=== PATIENT | male | born 1995 | race Two or more races ===

== ENCOUNTER 2020-10-11 10:14 | Emergency (ER) | payer SELFPAY ==
--- NOTE | 2020-10-11 10:31 | EDM.PDOC ---
ED HPI GENERAL MEDICAL PROBLEM - General Stated Complaint: HURT TO URINATE Time Seen by Provider: 10/11/20 10:18 Source of Information: Reports: Patient History Limitations: Reports: No Limitations - History of Present Illness INITIAL COMMENTS - FREE TEXT/NARRATIVE: 24-year-old male no past medical history presents for dysuria and penile discharge. Patient notes that he sexually active with last partner roughly 2 weeks ago. He is noted symptoms for the last 2 days. He denies noting any lesions or sores on his penis or groin area. No testicular pain. No abdominal pain. No nausea or vomiting. No fevers. The penile discharge is described as yellow and thick. 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 pain with urination Pain Score (Numeric/FACES): 2 - Related Data Allergies Allergy/AdvReac Type Severity Reaction Status Date / Time No Known Allergies Allergy Verified 10/11/20 10:59 Home Meds: Home Meds Sulfamethoxazole/Trimethoprim [Bactrim Ds Tablet] 1 each PO BID #14 tablet 10/11/20 [Rx] ED ROS GENERAL - Review of Systems Review Of Systems: Comprehensive ROS is negative, except as noted in HPI. ED EXAM, GENERAL - Physical Exam Exam: See Below Exam Limited By: No Limitations General Appearance: Alert, WD/WN, No Apparent Distress Throat/Mouth: Normal Voice, No Airway Compromise Head: Atraumatic, Normocephalic Respiratory/Chest: No Respiratory Distress, No Accessory Muscle Use Cardiovascular: Normal Peripheral Pulses, Regular Rate, Rhythm GI/Abdominal: Soft, Non-Tender (Male) Exam: Normal Inspection. No: Rash, Scrotal Swelling, Scrotum Tenderness (L), Scrotum Tenderness (R), Suprapubic Fullness, Testicular Mass, Testicular Tenderness (L), Testicular Tenderness (R), Urethral Discharge Extremities: Normal Inspection Psychiatric: Normal Affect, Normal Mood Skin Exam: Warm, Dry, Intact, Normal Color Course - Vital Signs Last Recorded V/S: Last Vital Signs Temp 98.4 F 10/11/20 10:54 Pulse 88 10/11/20 10:54 Resp 18 10/11/20 10:54 BP 122/70 10/11/20 10:54 Pulse Ox 97 10/11/20 10:54 - Orders/Labs/Meds Orders: Active Orders 24 hr Category Date Time Status CHLAMYDIA AND GONORRHEA BY TMA Stat Lab 10/11/20 11:05 Received Labs: Laboratory Tests 10/11/20 Range/Units 11:05 Urine Color YELLOW Urine Appearance CLOUDY Urine pH 6.5 (5.0-8.0) Ur Specific [place] 1.025 (1.001-1.035) Urine Protein NEGATIVE (NEGATIVE) mg/dL Urine Glucose (UA) NEGATIVE (NEGATIVE) mg/dL Urine Ketones NEGATIVE (NEGATIVE) mg/dL Urine Occult Blood MODERATE H (NEGATIVE) Urine Nitrite NEGATIVE (NEGATIVE) Urine Bilirubin NEGATIVE (NEGATIVE) Urine Urobilinogen 1.0 (<2.0) EU/dL Ur Leukocyte Esterase LARGE H (NEGATIVE) Urine RBC 8-12 (0-2/HPF) Urine WBC 50-60 (0-5/HPF) Ur Epithelial Cells RARE (NONE-FEW) Urine Bacteria RARE (NEGATIVE) Meds: Medications Discontinued Medications Generic Name Dose Route Start Last Admin Trade Name Freq PRN Reason Stop Dose Admin Azithromycin 1,000 mg 10/11/20 11:21 Azithromycin 250 Mg Tab PO 10/11/20 11:22 STAT STA Ceftriaxone Sodium 500 mg/ 1 mls @ 1 mls/sec 10/11/20 11:21 Lidocaine HCl IM 10/11/20 11:22 ONETIME ONE - Re-Assessments/Exams Free Text/Narrative Re-Assessment/Exam: 10/11/20 11:25 Will test and treat for gonorrhea and chlamydia. We will send urinalysis as well. 10/11/20 11:29 Urinalysis does show evidence of UTI. Will discharge with Bactrim in addition to the gonorrhea chlamydia treatment patient received in the emergency department. Departure - Departure Time of Disposition: 11:29 Disposition: Home, Self-Care 01 Condition: Good Clinical Impression: UTI (urinary tract infection) Qualifiers: Urinary tract infection type: site unspecified Hematuria presence: with hematuria Qualified Code(s): N39.0 - Urinary tract infection, site not specified - Discharge Information Prescriptions: Sulfamethoxazole/Trimethoprim [Bactrim Ds Tablet] 1 each PO BID #14 tablet Instructions: Urinary Tract Infection, Adult Referrals: PCP,None [Primary Care Provider] - Additional Instructions: Knox anlisis de orina muestra que tiene romain infeccin del tracto urinario. Tambin recibi tratamiento por infecciones de transmisin sexual, yajaira esta prueba no estar disponible hoy. Envi antibiticos a knox farmacia. Si tiene sntomas continuos a pesar del uso de antibiticos y regrese al departamento de emergencias o delmy un seguimiento con un mdico de atencin primaria. Las instrucciones de [place] se tradujeron con el traductor de [employer] y pueden contener errores. La siguiente informacin se arsalan a los pacientes atendidos en el departamento de emergencias que estn siendo dados de [place] a knox hogar. Esta informacin es para describir agustín opciones para la atencin de seguimiento. Proporcionamos a todos los pacientes atendidos en nuestro departamento de emergencias romain derivacin de seguimiento. La necesidad de seguimiento, as eliel el momento y las circunstancias, varan segn los detalles de knox visita al departamento de emergencias. Si no tiene un mdico de atencin primaria en el personal, le proporcionaremos romain referencia. Siempre le recomendamos que se ponga en contacto con knox mdico personal despus de romain visita al servicio de urgencias para informarle de las circunstancias de la visita y para hacer un seguimiento con l y / o la necesidad de cualquier derivacin a un especialista consultor. El departamento de emergencias tambin lo derivar a un especialista cuando sea apropiado. Esta remisin le asegura que tiene la oportunidad de recibir atencin de seguimiento con un especialista. Todas estas medidas se celso en un esfuerzo por brindarle romain atencin ptima, que incluye knox seguimiento. En todas las circunstancias, siempre lo alentamos a que se comunique con knox mdico privado, quien sigue siendo un recurso para coordinar knox atencin. Cuando llame para recibir atencin de seguimiento, informe al consultorio que samanta seguimiento es de knox visita reciente a la sean de emergencias. Si por alguna razn se le niega el seguimiento, comunquese con el Departamento de Emergencias del [facility] y solicite hablar con la enfermera a cargo del departamento de emergencias. Delmy un seguimiento con knox mdico de atencin primaria. Si no tiene un mdico de atencin primaria, consulte a continuacin: Atencin primaria de la wayne [facility] [address] [place] [id number] [facility] [address] [place] [id number] Sepsis Event Note (ED) - Focused Exam Vital Signs: Vital Signs Temp Pulse Resp BP Pulse Ox 10/11/20 10:54 98.4 F 88 18 122/70 97 - My Orders Last 24 Hours: My Active Orders 10/11/20 11:05 CHLAMYDIA AND GONORRHEA BY TMA Stat - Assessment/Plan Last 24 Hours: My Active Orders 10/11/20 11:05 CHLAMYDIA AND GONORRHEA BY TMA Stat
[2020-10-11] MEDS ORDERED: cefTRIAXone 500 MG in Lidocaine 1% 1 ML IM ONE (11:21)
[2020-10-11] MEDS ORDERED: Azithromycin 250 MG Tab PO STA (11:21)
[2020-10-13 12:06] LABS: C.TRACHOMATIS BY TMA Negative (Negative); N.GONORRHOEAE BY TMA Positive (Negative)
== END 2020-10-11 12:36 | disposition home or self-care (01) ==
LOC: MW.ED 10:14
DX: N39.0 Urinary tract infection, site not specified (principal); R31.9 Hematuria, unspecified
CPT/HCPCS: 81001; 87491; 87591; 96372; 99283; A9270; J0696

== ENCOUNTER 2020-10-11 20:10 | Emergency (ER) | payer SELFPAY ==
[2020-10-11] MEDS ORDERED: Ketorolac 30 MG/ML SDV IM STA (20:43)
--- NOTE | 2020-10-11 20:48 | EDM.PDOC ---
ED HPI GENERAL MEDICAL PROBLEM - General Chief Complaint: Genitourinary Problem Stated Complaint: PAIN Time Seen by Provider: 10/11/20 20:34 Source of Information: Reports: Patient History Limitations: Reports: No Limitations - History of Present Illness INITIAL COMMENTS - FREE TEXT/NARRATIVE: Patient is a 24-year-old male who was seen here earlier today, colleague was treated for STD and UTI. Patient returned back with his father because the pharmacy was closed and cannot warehouse picker his Bactrim prescription. Patient also complains of increased pain when urinating. Patient is requesting something for the pain as well. Patient otherwise denies any fever chills or other complaints. urinary pain Pain Score (Numeric/FACES): 10 - Related Data Allergies Allergy/AdvReac Type Severity Reaction Status Date / Time No Known Allergies Allergy Verified 10/11/20 20:38 Home Meds: Home Meds Sulfamethoxazole/Trimethoprim [Bactrim Ds Tablet] 1 each PO BID #14 tablet 10/11/20 [Rx] Past Medical History - Past Health History Medical/Surgical History: Denies Medical/Surgical History Social & Family History - Family History Family Medical History: Unobtainable ED ROS GENERAL - Review of Systems Review Of Systems: See Below Constitutional: Reports: No Symptoms HEENT: Reports: No Symptoms Respiratory: Reports: No Symptoms Cardiovascular: Reports: No Symptoms Endocrine: Reports: No Symptoms GI/Abdominal: Reports: No Symptoms : Reports: Dysuria Musculoskeletal: Reports: No Symptoms Skin: Reports: No Symptoms Neurological: Reports: No Symptoms Psychiatric: Reports: No Symptoms Hematologic/Lymphatic: Reports: No Symptoms Immunologic: Reports: No Symptoms ED EXAM, RENAL/ - Physical Exam Exam: See Below Exam Limited By: No Limitations General Appearance: Alert, WD/WN, No Apparent Distress (Male) Exam: Normal Inspection. No: Testicular Tenderness (L), Testicular Tenderness (R) Neurological: Alert, Oriented Course - Vital Signs Last Recorded V/S: Last Vital Signs Temp 98.2 F 10/11/20 20:35 Pulse 90 10/11/20 20:35 Resp 18 10/11/20 20:35 BP 122/89 10/11/20 20:35 Pulse Ox 97 10/11/20 20:35 - Orders/Labs/Meds Meds: Medications Discontinued Medications Generic Name Dose Route Start Last Admin Trade Name Freq PRN Reason Stop Dose Admin Ketorolac Tromethamine 30 mg 10/11/20 20:43 10/11/20 20:55 Ketorolac 30 Mg/Ml Sdv IM 10/11/20 20:44 30 mg NOW STA Administration Departure - Departure Time of Disposition: 21:07 Disposition: Home, Self-Care 01 Condition: Good Clinical Impression: STI (sexually transmitted infection) - Discharge Information *PRESCRIPTION DRUG MONITORING PROGRAM REVIEWED*: Not Applicable *COPY OF PRESCRIPTION DRUG MONITORING REPORT IN PATIENT GALILEO: Not Applicable Instructions: Sexually Transmitted Disease, [id number] Referrals: PCP,None [Primary Care Provider] - Forms: ED Department Discharge Additional Instructions: The following information is given to patients seen in the emergency department who are being discharged to home. This information is to outline your options for follow-up care. We provide all patients seen in our emergency department with a follow-up referral. The need for follow-up, as well as the timing and circumstances, are variable depending upon the specifics of your emergency department visit. If you don't have a primary care physician on staff, we will provide you with a referral. We always advise you to contact your personal physician following an emergency department visit to inform them of the circumstance of the visit and f or follow-up with them and/or the need for any referrals to a consulting specialist. The emergency department will also refer you to a specialist when appropriate. This referral assures that you have the opportunity for follow-up care with a specialist. All of these measure are taken in an effort to provide you with optimal care, which includes your follow-up. Under all circumstances we always encourage you to contact your private physician who remains a resource for coordinating your care. When calling for follow-up care, please make the office aware that this follow-up is from your recent emergency room visit. If for any reason you are refused follow-up, please contact the [facility] Emergency Department at and asked to speak to the emergency department charge nurse. Please follow up with your primary care physician. If you do not have a primary care physician, see below: [facility] [address] [place] [id number] [facility] [address] [place] [id number] Usted fue visto hoy por dolor al orinar relacionado con knox infeccin de transmisin sexual. El antibitico que leatha sheree debera ayudar con esto. [place] Motrin o Tylenol para el dolor. Si tiene ms escalofros o dolor en los prximos 3 dillon, regrese al servicio de urgencias. Por favor, tome los antibiticos que le recetaron anteriormente. Sepsis Event Note (ED) - Evaluation Sepsis Screening Result: No Definite Risk - Focused Exam Vital Signs: Vital Signs Temp Pulse Resp BP Pulse Ox 10/11/20 20:35 98.2 F 90 18 122/89 97 - Assessment/Plan Plan: Patient is a 24-year-old male presents today for painful urination. Patient has already been treated with antibiotics earlier today but did not warehouse picker this prescription. Will provide patient with Toradol and patient can follow-up and get antibiotics in the morning.
== END 2020-10-11 21:25 | disposition home or self-care (01) ==
LOC: MW.ED 20:10
DX: A64 Unspecified sexually transmitted disease (principal)
CPT/HCPCS: 96372; 99283; J1885